=== PATIENT | male | born 1950 | race Caucasian/White ===

== ENCOUNTER → 2018-12-21 17:58 | Outpatient (CLI) | payer OTHER, MEDICARE, SELFPAY ==
--- NOTE | 2018-12-21 18:04 | DI.RAD.S_ITS ---
PROCEDURE: XR CHEST 2V INDICATIONS: worsening cough 1 month TECHNIQUE: 2 views of the chest were acquired. COMPARISON: None. FINDINGS: Surgical changes and devices: None. Lungs and pleura: No pleural effusions or pneumothorax. Lungs are clear. Mediastinum: Mediastinal contours are normal. Heart size is normal. Bones and chest wall: No suspicious bony abnormalities. Soft tissues appear unremarkable. IMPRESSION: No acute cardiopulmonary disease. Dictated by: Brando Muñiz M.D. on 12/21/2018 at 20:50 Approved by: Brando Muñiz M.D. on 12/21/2018 at 20:50
[2018-12-21 18:36] LABS: D Dimer < 200 ng/mL (<230)
== END ==
PROVIDERS: Visit Provider Physician Assistant
DX: R05 Cough (principal)
CPT/HCPCS: 71046; 85379

== ENCOUNTER 2019-04-21 08:36 | Emergency (ER) | payer OTHER, MEDICARE, SELFPAY ==
[2019-04-21 08:53] VITALS: BP 149/70; PULSE 60; RESP 14; TEMP 36.2; O2SAT 100; BMI 25.3
--- NOTE | 2019-04-21 10:59 | ED.SKABFB ---
HPI - Skin/Abscess/Foreign Bdy General Chief complaint: Skin/Abscess/Foreign Body Stated complaint: RASH Time Seen by Provider: 04/21/19 09:23 Source: patient Mode of arrival: ambulatory Limitations: no limitations History of Present Illness HPI narrative: Patient complains of a rash on her hands and forearms and feet and lower legs for the last 5 days. Patient states she has now noticed that it has spread to her back. Patient has been on Benadryl and cetirizine, which have not seemed to have had any effect. The patient denies any swelling in her throat or face. She states the rash has been mildly itchy. She states she is not taken any steroids, because she has had a bad reaction to them in the past. Patient states that today, she has began to notice that she has mucus drainage in her eyes and in her nose, and down the back of her throat. No other complaints this time. Patient denies nausea vomiting, shortness breath, or chest pain. Patient states she saw her primary care physician about this a few days back, and was felt to have had a food allergy. Patient denies any sick contacts. 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 Related Data Previous Rx's Medication Instructions Recorded benzonatate 100 mg capsule 100 mg PO TID PRN #20 cap 12/21/18 hydroxyzine HCl 25 mg PO QID PRN #20 tab 04/21/19 Allergies Allergy/AdvReac Type Severity Reaction Status Date / Time Penicillins Allergy Verified 04/21/19 08:53 prednisone Allergy Verified 04/21/19 08:53 Sulfa (Sulfonamide Allergy Verified 04/21/19 08:53 Antibiotics) Review of Systems Constitutional Denies chills, Denies fever(s), Denies lethargy and Denies weakness Eyes Denies change in vision, Denies eye discharge, Denies irritation and Denies loss of vision ENT Ears, Nose, Mouth, and Throat: Denies change in voice, Denies neck pain and Denies sore throat Cardiovascular Denies chest pain, Denies irregular heart rhythm, Denies lightheadedness, Denies palpitations, Denies dyspnea, Denies dyspnea on exertion and Denies orthopnea Respiratory Denies cough, Denies dyspnea, Denies dyspnea on exertion and Denies wheezing Gastrointestinal Gastrointestinal: Denies abdominal pain, Denies change in bowel habits, Denies diarrhea, Denies nausea and Denies vomiting Genitourinary Denies hematuria, Denies flank pain, Denies urinary incontinence and Denies urinary urgency Musculoskeletal Denies neck pain Integumentary/Breasts Denies pruritus, Denies erythema, Reports rash and Denies wounds Neurologic Denies confusion, Denies loss of vision and Denies weakness Psychiatric Denies anxiety, Denies confusion, Denies depression, Denies homicidal ideation and Denies suicidal ideation Endocrine Denies palpitations Hematologic/Lymphatic Denies easy bruising Allergic/Immunologic Denies wheezing [facility] Medical History Healthy adult (Acute) Social History Smoking Status: Never smoker Social History Smoking Status: Never smoker Exam Initial Vital Signs Initial Vital Signs: Vital Signs Temperature 97.1 F L 04/21/19 08:53 Pulse Rate 60 04/21/19 08:53 Respiratory Rate 14 04/21/19 08:53 Blood Pressure 149/70 H 04/21/19 08:53 Pulse Oximetry 100 04/21/19 08:53 Const General: cooperative and well developed Nutritional Appearance: well nourished Orientation: alert, awake, oriented x3 and not confused [facility] Head: normocephalic and atraumatic Ears: external ears normal and TM's normal bilaterally Nose: external nose normal and No nasal discharge Face and sinus: sinuses nontender, face symmetric, no sinus tenderness and No dry mucous membranes Mouth: oral mucosae normal and moist mucous membranes Teeth and gingiva: dentition normal Throat: tonsils normal and uvula midline Eyes General: appearance normal, both eyes and all related structures Eyelids: eyelids normal Conjunctivae: conjunctivae normal Sclera: sclerae normal Pupils: PERRL EOM: EOM intact bilaterally Neck Neck: normal visual inspection, trachea midline, No lymphadenopathy, No midline deformity and No JVD Lymphatic: No lymphedema Chest Chest: normal inspection of the chest Resp Effort & Inspection: normal respiratory effort, able to speak in complete sentences, no respiratory distress and no use of accessory muscles Auscultation: clear to auscultation bilaterally, no rales, no rhonchi and no wheezes Cardio Rate: regular rate Rhythm: regular rhythm Heart Sounds: no click, no gallops, no murmurs and no rubs Pulses: normal peripheral pulses GI Inspection: non-distended Palpation: soft, no hepatosplenomegaly, No guarding, No pulsatile mass and No tender Auscultation: normal bowel sounds Back/Spine/Pelvis Back: No CVA tenderness Cervical Spine: cervical ROM normal and No pain with cervical ROM Thoracic/Lumbar Spine: thoracic and lumbar spine normal to inspection Skin General: No jaundice and No petechiae Other: Patient has a fine, maculopapular rash involving both sides of her hands and forearms, and both feet and lower legs. She has the same rash to lesser degree over her back. No urticaria are noted. No pustules or vesicles. No open wounds. Neuro General: alert, oriented x3, gait normal and no focal motor deficits Speech: speech normal Extrem General: full ROM, no clubbing, cyanosis or edema, no pedal edema and no calf tenderness Psych Appearance: well kempt Mental Status: mental status grossly normal Attitude: cooperative Thought Content: normal and suicidality Judgment: judgment good Course Course Narrative: I discussed with the patient that I am not entirely certain what is causing her rash. The patient does have nasal congestion and mucus production, as well as runny eyes, and as such, she may have an upper respiratory infection with viral exanthem, or she may have an allergic reaction. At this time, it is not entirely clear what she would be reacting to, and the patient has declined steroids, which would most likely be the most helpful in managing her symptoms. At this point, I advised the patient that she does not have any evidence of an emergent cause of rash, and that most likely, the symptoms will blow over on their own. We have discussed home management of the symptoms, as well as the usual indications for return. Vital Signs - 8 hr 04/21/19 11:11 Pulse Rate 57 L Respiratory Rate 18 Blood Pressure 160/69 H Pulse Oximetry 98 MDM - Skin/Abscess/Foreign Bdy Medical Records Attestation: I reviewed the patient's medical records. Discharge Plan Departure Patient Disposition: Home Clinical Impression: Rash Discharge Date/Time: 04/21/19 11:11 Interventions: ED Discharge Assessment Last Done: 04/21/19 11:11 Instructions: DI for Viral Upper Respiratory Infection -- Adult, DI for Rash Activity Restrictions/Additional Instructions: There is no evidence of a dangerous cause of your rash at this time. This may be related to allergy or viral infection, but either way, it would be expected to blow over on its own. Prednisone would be the most helpful medication for this, most likely, but since you have had a bad reaction to steroids in the past, we will hold off on this. Prescriptions: New hydroxyzine HCl 25 mg tablet 25 mg PO QID PRN (Reason: rash) Qty: 20 RF: 0 No Action benzonatate [Tessalon Perles] 100 mg capsule 100 mg PO TID PRN (Reason: cough) Qty: 20 RF: 0 Referrals: Emanuel Ambrocio ARNP [Primary Care Provider] -
[2019-04-21 11:11] VITALS: BP 160/69; PULSE 57; RESP 18; O2SAT 98
== END 2019-04-21 11:11 | disposition home or self-care (01) ==
PROVIDERS: Emergency Provider Emergency Medicine; PCP Registered Nurse
DX: R21 Rash and other nonspecific skin eruption (principal)
CPT/HCPCS: 99282; 99283

== ENCOUNTER → 2020-06-13 09:33 | Outpatient (CLI) | payer OTHER, MEDICARE, SELFPAY ==
--- NOTE | 2020-06-13 09:35 | DI.MRI.S_ITS ---
PROCEDURE: MR CERVICAL SPINE WO CON INDICATIONS: Strain of muscle, fascia and tendon at neck and low back TECHNIQUE: Noncontrast sagittal T1 spin echo and T2 fast spin echo, sagittal STIR, foraminal oblique sagittal T2 fast spin echo, and axial gradient echo or T2 fast spin echo through the cervical spine. COMPARISON: None. FINDINGS: Image quality: Excellent. Alignment and Curvature: There is loss of normal cervical lordosis. There is mild kyphosis at C3-C5. Bone Marrow: Marrow demonstrates normal overall signal. There is mild reactive signal within the endplates adjacent to the C3-C4, C4-C5, C5-C6, and C6-C7 intervertebral discs. Spinal Cord: Visualized spinal cord has normal size and signal. No cerebellar tonsillar herniation. Paraspinous Soft Tissues: No paravertebral masses. Prevertebral soft tissues are normal in thickness. C2-C3: Mild disc desiccation. Mild bilateral facet hypertrophy. No significant canal stenosis. Mild bilateral foraminal stenosis. C3-C4: Mild disc height loss. Moderate disc desiccation. Mild diffuse disc bulge with superimposed small central protrusion. Moderate left and mild right facet and uncovertebral hypertrophy. Severe left and moderate right foraminal stenosis. Left C4 nerve root compression. C4-C5: Moderate disc height loss and desiccation. Mild diffuse disc bulge with superimposed right paracentral protrusion. Moderate facet and uncovertebral hypertrophy, right greater than left. Severe canal stenosis. Mild right cord flattening. Severe right and mild left foraminal stenosis. Right C5 nerve root compression. C5-C6: Moderate disc height loss and desiccation. Mild diffuse disc bulge. Moderate facet and uncovertebral hypertrophy, right greater than left. Moderate canal stenosis. Moderate right and mild left foraminal stenosis. C6-C7: Moderate disc height loss and desiccation. Mild diffuse disc bulge. Mild facet and uncovertebral hypertrophy bilaterally. Mild canal stenosis. Moderate left greater than right foraminal stenosis. C7-T1: Mild disc height loss and desiccation. Mild diffuse disc bulge. Mild facet and uncovertebral hypertrophy bilaterally. Mild canal stenosis. Mild left greater than right foraminal stenosis. IMPRESSION: 1. Multilevel degenerative disc and facet disease, as well as uncovertebral hypertrophy. 2. Multilevel canal stenosis, worst at C4-C5, where there is severe canal stenosis and mild cord flattening. 3. Multilevel foraminal stenoses, worst at C3-C4 and C4-C5, where there is associated intraforaminal nerve root compression. Recommend correlation with clinical symptoms to ascertain relevance of this finding. Dictated by: David Simental M.D. on 06/15/2020 at 9:28 Approved by: David Simental M.D. on 06/15/2020 at 9:36
--- NOTE | 2020-06-13 09:35 | DI.MRI.S_ITS ---
PROCEDURE: MR LUMBAR SPINE WO CON INDICATIONS: Strain of muscle, fascia and tendon at neck and low back TECHNIQUE: Noncontrast sagittal T1 spin echo and T2 fast echo, sagittal STIR, axial T1 and T2 fast spin echo through the lumbar spine. In cases with scoliosis, additional coronal T2 fast spin echo may be performed. COMPARISON: None. FINDINGS: Image quality: Excellent. Alignment and Curvature: There is normal bony alignment. Bone Marrow: Marrow is of normal overall signal. No acute vertebral body compression fractures. Spinal Cord: Conus medullaris terminates at the T12 level. Visualized cord demonstrates normal signal and size. Paraspinous Soft Tissues: No paravertebral masses. A low-density cystic lesion is present within the lower pole of the right kidney which is incompletely characterized. L1-L2: Normal appearance. L2-L3: Normal appearance. L3-L4: Mild disc bulge. No canal stenosis. No neural foraminal narrowing. L4-L5: Mild disc desiccation and height loss. Broad-based disc bulge. Mild facet ligamentum flavum hypertrophy. No canal stenosis. No neural foraminal narrowing. Small posterior focal high-intensity zone. L5-S1: Severe disc desiccation and height loss. Vacuum disc phenomenon. Broad-based disc bulge. Moderate-sized posterior focal high-intensity zone. No canal stenosis. No neural foraminal narrowing. IMPRESSION: 1. Disc desiccation and height loss at L4-5 and L5-S1. Findings are severe at L5-S1 with vacuum disc phenomenon present. 2. Posterior annular tears at L4-5 and L5-S1. 3. No canal stenosis or neural foraminal narrowing. Less common manifestations of disc degeneration: * dorsal epidural disc herniation. * intradural disc herniation (may have beaklike morphology). * symptomatic thoracic herniation: often, calcified, intradural. * far lateral disc herniation. * discal cyst: may have blood-fluid level. * fibrocartilaginous embolism of disc material to spinal cord. * calcified disc or bony spicule causing spinal CSF leak. Lumbar disc nomenclature v2.0: Recommendations of the combined task forces of the [place] [employer], [place] [employer], and [place] [employer] Annular fissures: seen as high intensity zones on MRI. Concentric, radial, transverse. Degeneration encompasses: desiccation, fibrosis, disc narrowing, diffuse bulge, fissuring, mucinous degeneration of annulus, intradiscal gas, vertebral apophyseal osteophytes, end plate defects, inflammatory changes and sclerosis (Modic types I-III). Disc herniation: localized or focal displacement of disc material less than 25% (90 degrees) of disc periphery on axial images. Diffuse bulging and asymmetric bulging (>25%) are not considered herniation. * Protrusion, extrusion, sequestration. * Disc fragment can migrate (refers only to position, not contiguity). * Intravertebral herniations (aka Schmorl nodes). * Herniations may be contained (if covered by intact outer annulus and/or PLL) vs uncontained. Subligamentous is considered synonymous with contained. A sequestered and/or migrated disc fragment can still be contained. Canal and foraminal stenosis: use 2-D measurements at site of most marked compromise. * Mild: canal compromise of less than 1/3. * Moderate: canal compromise of 1/3 to 2/3. * Severe: canal compromise of greater than 2/3. Location descriptors: * Central, right/left central, right/left subarticular, right/left foraminal, right/left extraforaminal or far lateral. Right/left central should supersede paracentral (a more general term). * In sagittal plane: discal, infrapedicular, suprapedicular, or pedicular. Dictated by: Xiomara Aguilar M.D. on 06/15/2020 at 9:29 Approved by: Xiomara Aguilar M.D. on 06/15/2020 at 9:32
== END ==
PROVIDERS: PCP Registered Nurse; Referring Provider Orthopaedic Surgery; Visit Provider Orthopaedic Surgery
DX: S16.1XXA Strain of muscle, fascia and tendon at neck level, initial encounter (principal); S39.012A Strain of muscle, fascia and tendon of lower back, initial encounter; M51.36 Other intervertebral disc degeneration, lumbar region; M50.31 Other cervical disc degeneration, high cervical region; M48.02 Spinal stenosis, cervical region; M47.812 Spondylosis without myelopathy or radiculopathy, cervical region; X58.XXXA Exposure to other specified factors, initial encounter
CPT/HCPCS: 72141; 72148

== ENCOUNTER → 2020-12-29 15:35 | Outpatient (CLI) | payer OTHER, MEDICARE, SELFPAY ==
--- NOTE | 2020-12-29 | DI.MRI.S_ITS ---
PROCEDURE: MR HIP RT WO CON INDICATIONS: Unilateral primary osteoarthritis, right hip TECHNIQUE: Noncontrast coronal T1 spin echo and STIR through the bony pelvis. Coronal and axial T2 fast spin echo with fat saturation, sagittal T1 spin echo, and oblique axial T2 fast spin echo with fat saturation through the hip. COMPARISON: None. FINDINGS: Image quality: Excellent. Bones and joints: Moderate right hip joint periarticular osteophyte formation. Mild subchondral degenerative marrow edema within the right superior femoral head as well as the right superior acetabulum. No intraosseous lesions or fractures. No avascular necrosis of the femoral heads. The visualized lower lumbar spine appears normally aligned. Tendons and ligaments: The gluteus medius and minimus tendons appear intact, without associated muscle atrophy. The nearby proximal iliotibial band also appears intact. The iliopsoas tendon appears intact, without adjacent bursal fluid collections or evidence for impingement syndrome. The origin of the hamstring tendon is intact at the ischial tuberosity, as well as the associated sacrotuberous ligament. The straight and reflected heads of the rectus femoris muscle origin appear intact, as well as the conjoint tendon. The ligamentum teres appears intact where visualized. Labrum and cartilage: Diffuse linear and amorphous high T2 signal intensity within the anterosuperior and superolateral right hip labrum, indicating labral tearing. Cartilage surface of the femoral head appears of normal thickness. The alpha angle of the femur is within normal limits at less than 55 degrees. Soft tissues: Visualized muscles demonstrate normal bulk and internal signal. Quadratus femoris muscle demonstrates no internal edema to suggest ischiofemoral impingement. The proximal sciatic neurovascular bundle appears normal adjacent to the hamstring tendons. No free pelvic fluid. Bladder wall thickness is normal. Genitourinary structures and bowel loops appear normal where visualized. IMPRESSION: 1. Right hip osteoarthritis associated with degenerative tearing of the right hip labrum. 2. No fracture. Dictated by: David Simental M.D. on 12/29/2020 at 16:35 Approved by: David Simental M.D. on 12/29/2020 at 16:38
== END ==
PROVIDERS: PCP Registered Nurse; Referring Provider Orthopaedic Surgery; Visit Provider Orthopaedic Surgery
DX: M16.11 Unilateral primary osteoarthritis, right hip (principal); S73.191A Other sprain of right hip, initial encounter
CPT/HCPCS: 73721

== ENCOUNTER → 2021-01-26 15:11 | Outpatient (CLI) | payer OTHER, MEDICARE, SELFPAY ==
[2021-01-26 15:28] LABS: Bacteria Urine None Seen; RBC Urine None Seen (0-5/HPF); WBC Urine None Seen (0-5/HPF)
[2021-01-26 17:36] LABS: Add Manual Diff / Slide Review NO; Basophils Absolute Auto 0 /uL (0-100); Basophils Percent Auto 0.7 % (0-2); Eosinophils Absolute Auto 200 /uL (0-450); Eosinophils Percent Auto 2.5 % (2-4); Hemoglobin 12.9 g/dL (13.5-17.5); Lymphocytes Absolute Auto 1300 /uL (1100-4500); Lymphocytes Percent Auto 19.4 % (25-40); Mean Corpuscular HGB Conc 33.8 % (30-36); Mean Corpuscular Hemoglobin 28.6 PG (26-34); Mean Corpuscular Volume 84.5 fL (80-100); Monocytes Absolute Auto 500 /uL (0-900); Monocytes Percent Auto 7.9 % (3-14); Neutrophils Absolute Auto 4600 /uL (1500-7000); Neutrophils Percent Auto 69.5 % (50-75); Platelet Count 288 X10^3/uL (150-400); Red Cell Distribution Width 14.5 % (11.6-14.8); White Blood Cell Count 6.6 X10^3/uL (4.5-11.0)
[2021-01-26 17:42] LABS: INR 0.9 (0.9-1.3); Prothrombin Time 10.5 SECONDS (10.1-12.7)
[2021-01-26 17:45] LABS: PTT Partial Thromboplastin Tim 30 SECONDS (26.4-36.2)
[2021-01-26 17:52] LABS: Appearance Urine UA CLEAR; Bilirubin Urine UA NEGATIVE (NEGATIVE); Color Urine UA YELLOW; Glucose Urine UA NEGATIVE (Negative); Ketones Urine UA NEGATIVE (NEGATIVE); Leukocyte Esterase Urine UA NEGATIVE (NEGATIVE); Nitrite Urine UA NEGATIVE (Negative); Occult Blood Urine UA NEGATIVE (Negative); Protein Urine UA NEGATIVE (Negative); Urobilinogen Urine UA 0.2 E.U./dL (0.2); pH Urine UA 5.5 (4.5-8.0)
[2021-01-26 18:01] LABS: Culture Indicated Urine Cult Not Indicated; Urine Comments Microscopic Normal
[2021-01-26 18:07] LABS: Hemoglobin A1C% w Est Avg Glu 6.5 % (4.0-6.0)
[2021-01-26 18:11] LABS: BUN Creatinine Ratio 28.8 (6-22); Blood Urea Nitrogen 19 mg/dL (9-20); Calcium 9.5 mg/dL (8.4-10.2); Carbon Dioxide 28 mmol/L (22-32); Chloride 105 mmol/L (98-107); Estimated Glomerular Filt Rate > 60.0 mL/min (>60); Glucose 127 mg/dL (80-110); HEMOLYSIS < 15 (0-50); Sodium 140 mmol/L (137-145)
== END ==
PROVIDERS: PCP Registered Nurse; Referring Provider Orthopaedic Surgery; Visit Provider Orthopaedic Surgery
DX: Z01.812 Encounter for preprocedural laboratory examination (principal); R73.9 Hyperglycemia, unspecified; N39.0 Urinary tract infection, site not specified; Z51.81 Encounter for therapeutic drug level monitoring
CPT/HCPCS: 36415; 80048; 81001; 83036; 85025; 85610; 85730

== ENCOUNTER → 2021-02-17 10:59 | Outpatient (CLI) | payer OTHER, MEDICARE, SELFPAY ==
[2021-02-17 13:43] LABS: COVID19 -Nasal RAPID Negative (Negative)
== END ==
PROVIDERS: PCP Registered Nurse; Visit Provider Student in an Organized Health Care Education/Training Program
DX: Z20.822 Contact with and (suspected) exposure to COVID-19 (principal)
CPT/HCPCS: 87635

== ENCOUNTER 2021-02-18 08:57 | Day surgery (SDC) | payer OTHER, MEDICARE, SELFPAY ==
[2021-02-18] VITALS (16 sets, daily range): BP systolic 138–188; BP diastolic 61–94; PULSE 60–79; RESP 8–20; TEMP 36.2–37.1; O2SAT 92–99; BMI 30.9
--- NOTE | 2021-02-18 06:00 | DI.RAD.S_ITS ---
PROCEDURE: XR HIP W PEL IF DONE RT 2V INDICATIONS: Right DANIEL, anterior TECHNIQUE: AP pelvis and lateral view of the right hip acquired. COMPARISON: None. FINDINGS: Bones: Patient is status post right hip arthroplasty, with hardware components in expected positions. The hip joint appears congruent. The visualized bony structures appear intact. Soft tissues: Overlying postoperative changes are noted. No suspicious soft tissue densities. IMPRESSION: Expected postoperative alignment. Dictated by: Collin Mendez M.D. on 02/18/2021 at 16:01 Approved by: Collin Mendez M.D. on 02/18/2021 at 16:02
[2021-02-18] MEDS: ACETAMINOPHEN 325 MG TABLET 975 MG PO (09:48)
[2021-02-18] MEDS: LACTATED RINGERS 1,000 ML 42 ML IV ×2 (10:10→13:50)
[2021-02-18] MEDS: VANCOMYCIN 1,000 MG/200 ML PIGGYBACK 200 MG IV (10:25)
--- NOTE | 2021-02-18 10:53 | PM.PREOP ---
Pre-operative Note COVID-19 COVID-19 status: Negative Interval Note History & Physical reviewed/Exam performed by Physician: Yes Changes to H&P: No
--- NOTE | 2021-02-18 10:53 | PM.OP.1 ---
Operative Date/Time/Diagnoses Date of procedure: 02/18/21 Time of procedure: 10:53 Pre-op diagnosis: right hip OA Post-op diagnosis: same Procedure & Clinicians Procedure: right total hip arthroplasty anterior approach Same procedure as scheduled: Yes Indications: The patient has had progressively worsening right hip pain with radiographic changes consistent with arthritis. Non-operative management has failed and the patient has requested total hip replacement. The risks, benefits and alternatives to surgery were discussed with the patient prior to proceeding. Risks discussed included, but were not limited to, failure to relieve pain, leg length discrepancy, dislocation, stiffness, infection, nerve damage, deep venous thrombosis, pulmonary embolism, stroke, coma, heart attack, permanent paralysis and , as well as the potential need for eventual revision of the prosthetic. Surgeon: Heather Royal Legal Examiner: Kalen Mott Anesthesia Type: General and Spinal Operative Notes Findings: severe right hip osteoarthritis, adequate bone, adequate stability Closure Type: primary Specimen(s): none sent Prosthetic devices, grafts, tissues, transplants, or devices: [employer] standard anthology size 6, +0 x 32 Oxinium head, size 50 R3 cup, 1 screw Estimated Blood Loss (mL): 250 Blood products transfused: none Procedure in detail: The patient was brought to the operating room. Patient was carefully positioned in the supine position. Time-out was performed and antibiotics were given. Anesthesia was induced. She was positioned in the on the table in order to allow hyperextension of the hip. The Right lower extremity was prepped and draped in a standard sterile fashion. An anterior right hip incision was made 1 fingerbreadth lateral to the anterior superior iliac spine and extended distally towards the greater trochanter. Dissection was carried out through skin and subcutaneous tissues. Superficial hemostasis was achieved. The fascia over the tensor fascia kassie was defined and incised with a knife. Two Allis clamps were used to grasp the fascia. Tensor fascia kassie was retracted laterally. A gelpi retractor was placed. Dissection was carried out down along the neck. The circumflex vessels were carefully identified and cauterized with the Aqua Mantis. There was good visualization of the femoral neck. A Cobra was placed superior to the neck and the gluteus fibers were carefully stripped from that superior aspect of the capsule. A 2nd retractor was placed along the inferior aspect of the neck. The rectus insertion along the capsule was partially released. A 3rd retractor that was then gently placed over the rim of the acetabulum under the rectus. Capsule was carefully incised and released from the intertrochanteric line circumferentially superior to the mid sagittal line and inferiorly to the mid sagittal line until the lesser trochanter was palpable. A tag stitch was placed both in the superior and inferior limb of the capsular insertion. Along the acetabulum capsule was also released up to the mid sagittal 12:00 position. A portion of the labrum was resected. A saw was used to perform an osteotomy at the level of the intertrochanteric line and the junction of the superior femoral neck leaving approximately 1 finger breath of residual inferior neck above the lesser trochanter. A 2nd cut was made along the femoral neck at the base of the head and a napkin ring of neck was removed. Corkscrew was placed in the femoral head and the head was removed without difficulty. Retractors were then repositioned around the acetabulum. Residual labrum was resected and additional osteophytes were removed. A reamer that was 4 mm below the templated size was placed by hand in the acetabulum and it was reamed to centralize the acetabulum. It was then reamed up to 2 under the templated size and fluoroscopy was brought in to confirm the position of the reaming and depth of reaming. I reamed 1 under the anticipated size. A trial cup was placed and noted that it was appropriately sized and fluoroscopy confirmed position and depth. The component was open and inserted without difficulty fluoroscopic imaging was used to confirm that the cup had been adequately seated and was well positioned. it was further stabilized with a single screw. Neutral poly liner was placed. The cup was tested and noted to be stable. Attention was then directed to the femur. The femur was gently hyperextended additional capsular release was performed as needed in order to allow adequate visualization of the proximal femur with elevation of the femur. Patient was placed in a hyperextended slightly adducted position with maximum external rotation. Box osteotome was used to check for any residual neck as well as sclerotic bone along the trochanter. Cosmos pepper was placed in the femur. Additional broaching was performed. Canal finder was used to determine the alignment of the canal and position. Size 1 broach was placed. The canal was then appropriately broached up to the templated size as long as there was adequate stability of the broach and serial advancement of the broach without excessive impingement. Specific attention was directed at avoiding varus attempting to direct the distal aspect of the broach more anteriorly and avoiding excessive anteversion. Trial reduction showed acceptable range of motion, good stability, no posterior impingement, confucianism of leg length and appropriate lateral shuck. I also hyperflexed the hip and checked that there was no impingement anteriorly and there was good stability with flexion, adduction and internal rotation. Marcaine and Exparel were injected. The stem was placed without difficulty. Repeat trial reduction and x-ray showed acceptable overall position, length, and no evidence of the femoral fracture. Final head was placed. Wound was meticulously irrigated with normal saline. The hip was reduced and additional Exparel and Marcaine were injected. The capsule was closed with interrupted nonabsorbable sutures. The fascia of the tensor was closed with interrupted and running Vicryl. No drain was placed. Any tensor fascia kassie muscle that appeared to be contused or injured which was a minimal amount was carefully resected. Capsule around the tensor was injected with Exparel and Marcaine. The skin was closed with barbed stitches for the subcutaneous tissue and skin. We also used surgical glue. The wound was dressed sterilely. Brief Betadine soak was also used and was meticulously irrigated with normal saline. Patient was transferred to recovery room in satisfactory condition. Complications: none Post-operative Condition: stable Disposition: Acute Care Plan for aftercare: The patient will be maintained on a standard total hip replacement protocol with weight bearing as tolerated and anterior hip precautions. The patient will receive Aspirin and sequential compression devices for DVT prophylaxis. The patient will be discharged home when safe for the home environment.
[2021-02-18] MEDS: CEFAZOLIN 2 GM/100 ML FROZ.PIGGY IV ×2 (11:40→21:31)
[2021-02-18] MEDS: TRANEXAMIC ACID 1,000 MG VIAL 2000 MG INJ ×2 (12:00→14:00)
--- NOTE | 2021-02-18 12:16 | SUR.OPER ---
Supine on padded Norden table with bilateral legs secured in padded positioning boots and suspended in positioning spars, operative leg in traction per surgeon. Head on one pillow. Arm on non-operative side secured on padded armboard <90 degrees abduction. Arm on operative side padded and resting across chest then secured with tape over sheet. Padded perineal post in place per surgeon.
--- NOTE | 2021-02-18 12:17 | SUR.OPER ---
pt. presents to the OR with an approximately 3 inch long inguinal skin tear on the right side. Surgeon aware
[2021-02-18] MEDS: BUPIVACAINE LIPOSOME 266 MG/20 ML VIAL INJ (12:28)
[2021-02-18] MEDS: SODIUM CHLORIDE IRRIG SOLUTION 250 ML, POVIDONE-IODINE SPONGE STICKS 1 APPLIC IRR (12:29)
[2021-02-18] MEDS: BUPIVACAINE 0.25% W/ EPI (PF) 10 ML VIAL 20 ML INJ (12:30)
[2021-02-18] MEDS: BACITRACIN 28 GM OINT 1 APPLIC TOP (13:07)
[2021-02-18] MEDS: fentaNYL 100 MCG/2 ML INJ IV (14:40)
[2021-02-18] MEDS: HYDROMORPHONE 2 MG INJ IV (14:59)
[2021-02-18] MEDS: OXYCODONE IR 5 MG TABLET PO (15:16)
[2021-02-18] MEDS: ONDANSETRON 4 MG/2 ML INJ IV (15:29)
[2021-02-18] MEDS: LACTATED RINGERS 1,000 ML 125 ML IV (16:50)
[2021-02-18] MEDS: IBUPROFEN 400 MG TABLET PO ×2 (18:10→21:31)
[2021-02-18] MEDS: ACETAMINOPHEN 325 MG TABLET 650 MG PO ×2 (18:10→21:30)
[2021-02-18] MEDS: CYCLOSPORINE 1 EACH EYE-BOTH (21:28)
[2021-02-18] MEDS: DOCUSATE 100 MG CAPSULE PO (21:30)
[2021-02-18] MEDS: ASPIRIN EC 81 MG TABLET PO (21:31)
[2021-02-19 00:33] VITALS: BP 127/61; PULSE 69; RESP 16; TEMP 36.3; O2SAT 99
[2021-02-19] MEDS: IBUPROFEN 400 MG TABLET PO ×3 (00:51→08:40)
[2021-02-19] MEDS: LACTATED RINGERS 1,000 ML 125 ML IV (00:52)
[2021-02-19] MEDS: CEFAZOLIN 2 GM/100 ML FROZ.PIGGY IV (04:05)
--- NOTE | 2021-02-19 04:38 | PC.NURSE ---
0055: patient is alert and oriented. Breath sounds CTA with RA sat of 99%. HRR. Denies nausea. BT hypoactive but patient states she is passing flatus. Voiding on BSC; denies dysuria, frequency or urgency. Is able to move self in bed. Assisted to BSC with 1 assist and using walker. Having some numbness in right upper leg and is only able to lift leg slightly off bed otherwise CMS is intact. Refusing to wear SCD's so reminded to ankle wave when aake. States pain is minimal at 3/10 so medicated with scheduled Ibuprofen and ice applied to hip; declines offer of other pain medication. Aquacel dressing to right anterior hip is CDI. Fall risk score is moderate and bed alarm is activated.
[2021-02-19 05:17] VITALS: BP 119/53; PULSE 72; RESP 16; TEMP 35.9; O2SAT 97
[2021-02-19 05:38] LABS: Hemoglobin 10.7 g/dL (13.5-17.5)
[2021-02-19] MEDS: PANTOPRAZOLE 40 MG TABLET PO (06:37)
[2021-02-19] MEDS: LEVOTHYROXINE 75 MCG TABLET 150 MCG PO (06:37)
[2021-02-19 07:45] VITALS: BP 140/65; PULSE 65; RESP 15; TEMP 36.6; O2SAT 98
[2021-02-19] MEDS: DOCUSATE 100 MG CAPSULE PO (08:38)
[2021-02-19] MEDS: MONTELUKAST 10 MG TABLET PO (08:38)
[2021-02-19] MEDS: MULTIVITAMIN 1 TABLET 1 TAB PO (08:38)
[2021-02-19] MEDS: METOPROLOL ER 25 MG TABLET PO (08:38)
[2021-02-19] MEDS: ASPIRIN EC 81 MG TABLET PO (08:38)
[2021-02-19] MEDS: ACETAMINOPHEN 325 MG TABLET 650 MG PO (08:39)
--- NOTE | 2021-02-19 08:53 | PM.PNPO.1 ---
Subjective Subjective Date Patient Seen: 02/19/21 Time Patient Seen: 08:19 Interval history: Patient states she is doing well after the right DANIEL. She notes that her pain is a 2/10 at the moment and is well controlled with Ibuprofen. The patient denies any difficulty voiding and states that she is able to ambulate well with the assistance of a walker. She reports that she has yet to meet with physical therapy. Patient has her prescriptions at home and states that she will continue taking Aspirin 81mg for another six weeks. Physical therapy is scheduled in the future at [facility]. Exam Vital Signs (past 8 hours): - 02/19/21 05:17 02/19/21 07:45 Temperature 96.7 F L 98 F Pulse Rate 72 65 Respiratory Rate 16 15 Blood Pressure 119/53 L 140/65 Pulse Oximetry 97 98 Oxygen Delivery Method Room Air Oxygen Flow Rate 0 Narrative Exam Narrative: Patient is pleasant and sitting upright in chair in the room having breakfast. Surgical incision site is clean without erythema and there is no strike through on the bandage. Vital signs are stable. Patient has normal sensation throughout the RLE. Plantar flexion and dorsiflexion of the ankle is performed without discomfort. Negative Homans sign. Patient is able to flex the right hip against slight resistance. Const General: cooperative and comfortable Orientation: alert, awake and oriented x3 HENMT Head: normal to inspection Resp Effort & Inspection: normal respiratory effort and able to speak in complete sentences Extrem General: normal to inspection, capillary refill normal and no calf tenderness Right lower extremity: normal capillary refill and hip/thigh Details: normal to inspection and normal ROM Objective Labs Result Diagrams: 02/19/21 05:19 Labs: Laboratory Results - last 24 hr 02/19/21 05:19 Hgb 10.7 L Hct 31.0 L [facility] Medical History Arthritis Congestive heart failure Crohn's disease Degenerative joint disease Headache, migraine Healthy adult Inflammatory bowel disease Obesity Sleep apnea Thyroid disease Social History household members: spouse and children Smoking Status: Never smoker alcohol intake: current Assessment & Plan Post-op Postoperative Procedures: Procedures Operation Date: 02/18/21 10:45 Actual Procedures Side Surgeon p Total Hip Arthroplasty/Anterior Approach Right Heather Royal MD Postoperative day: 1 Postoperative status: doing well Postoperative status narrative: Patient is stable Postoperative plan: ambulate Postoperative plan narrative: Patient is doing well but has yet to work with PT. She has a ramp and nine total stairs in her home. Prior to discharge the patient needs to ambulate with PT while also working on ascending stairs and ramps. The patient is to continue Aspirin 81mg for DVT prophylaxis, Tylenol and Ibuprofen for pain management, and weight bearing as tolerated with the assistance of a walker. She will follow up in two weeks for her first post-op visit and is currently scheduled for PT at [facility]. Physical therapy is needed prior to the patient being discharged. Anterior hip precautions. Quality VTE Deep Vein Thrombosis/Pulmonary Embolism Present on Admission: No
--- NOTE | 2021-02-19 09:53 | PT.IIE ---
Current Diagnoses Unilateral primary osteoarthritis, right hip (02/18/21) Surgery Performed Operation Date: 02/18/21 10:45 Actual Procedures p Total Hip Arthroplasty/Anterior Approach(Right) - Heather Royal MD Medical History (Last Reviewed 02/19/21 @ 09:14 by Tristen Hernandez PA-C) Arthritis Congestive heart failure Crohn's disease Degenerative joint disease Headache, migraine Healthy adult Inflammatory bowel disease Obesity Sleep apnea Thyroid disease Physical Therapy Inpatient Evaluation/Re-Eval M1 PT/OT-IP Prior Functional Status Start: 02/19/21 10:57 Freq: NEEDED Status: Active Protocol: Document 02/19/21 09:53 AB (Rec: 02/19/21 11:15 AB [id number]) Medical Review Prior Functional Status Medical History Reviewed Yes Communication able to make needs known Social History Household Members spouse,children Living Arrangements House Number of Floors (Floors) One Floor Number of Stairs To Enter/Railing? ramp to enter from the back 9 steps with bilateral wide rails from the front: can only hold on to one rail at a time Home Environment High Toilet,Tub/Shower Home Equipment Front Wheel Walker,Four Wheel Walker,Straight Cane,Raised Toilet Seat Without Armrests, Shower Seat with Backrest,Hand Held Shower,Grab Bars In Shower Additional Social History Comment has an adjustable bed with L side rail M2 PT-IP Current Condition Start: 02/19/21 10:57 Freq: NEEDED Status: Active Protocol: Document 02/19/21 09:53 AB (Rec: 02/19/21 11:15 AB [email or web address]) Physical Therapy Current Condition Current Condition Evaluation Date 02/19/21 Treatment Diagnosis s/p R DANIEL anterior approach; difficulty in walking Onset Date 02/18/21 Precautions Anterior Hip Precautions No Hip Extension,No Hip External Rotation Weight Bearing Status Weight Bearing Status Weight Bear as Tolerated Allowed Weight Bearing Amount (enter % RLE WBAT or #) (%) M3 PT-IP Subjective Start: 02/19/21 10:57 Freq: NEEDED Status: Active Protocol: Document 02/19/21 09:53 AB (Rec: 02/19/21 11:15 AB [email or web address]) Subjective Physical Therapy Visit Type Type Initial Evaluation Visit Start Time 09:53 Visit Stop Time 10:00 Total Visit Minutes 57 Number of LICENSED PSYCHOLOGIST MANAGER Visits 0 Physical Therapy Visit Comments Patient Comments pt is agreeable to do PT Therapy Pain Assessment Pain When Pain Assessed At Rest Pain Present Pain Present Pain Reported Location right hip Intensity 2 Scale Used increases to 3/10 with mobility Pain Management Techniques Distraction,Modification of Treatment,Re-positioning, Timing of Activity with Medications M4 PT-IP Mobility and Gait Start: 02/19/21 10:57 Freq: NEEDED Status: Active Protocol: Document 02/19/21 09:53 AB (Rec: 02/19/21 11:15 AB [email or web address]) PT-Bed Mobility Assessment Supine to Sit Supine to Sit Standby Assistance Sit to Supine Sit to Supine Standby Assistance PT-Transfer Assessment Sit to and From Stand Sit to and from Stand Standby Assistance Equipment Transfer Assistive Device Gait Belt Orthotic/Prosthetic Devices or Brace: No Transfers Transfer Destination Bed,Chair Transfer Technique ambulated using FWW Transfer Ability Level of Assist Standby Assistance,1 Person Assistance,Use of Upper Extremities Comments Mobility Comments educated pt on R anterior hip precautions. pt initially requires cues to recall but able to remember towards end of tx session. pt sitting on chair and completed sit to stand SBA and cues for techniques. ambulated towards the bed using FWW SBA and cues to maintain hip precautions. completed sit<> supine SBA and cues for techniques. pt completed sit to stand from EOB but pulled on FWW to get up and was unsteady and needing to use back of LE against the bed to brace herself up. educated pt on techniques and safety. completed sit <>stand from EOB x 5 reps and was able to complete SBA and without cues towards the end of repetition. pt ambulated in the hallway ~ 125 ft using FWW SBA. completed up/down steps holding on to R rail with B hands CGA. pt ambulated back to the her room using FWW SBA. positioned on chair. call light and table placed within reach. offered caregiver training but stated that she has a daughter that has down's syndrome and spouse cannot leave her by herself and will not be able to do caregiver training. Gait Assessment Gait Gait Assistance Required: Standby Assistance Distance (Feet) 125 Able to Maintain Weight Bearing Status Yes During Gait Assistive Devices Assistive Device Gait Belt,Front Wheeled Walker Orthotic/Prosthetic Devices or Brace: No Gait Deviations General Gait Pattern Antalgic Factors Limiting Gait Function Factors Limiting Gait Function Decreased Activity Tolerance, Decreased Strength,Limited Range of Motion,Pain,Poor Balance,Poor Safety Awareness Stair Climbing Assessment Evaluation Level of Assist On Stairs Contact Guard Assistance Devices Stair Climbing Assistive Devices Right Railing Technique/Endurance Stair Climbing Direction Ascend and Descend Stair Climbing Technique Step to Step Number of Steps Climbed 3 Query Text: Stair Climbing Set # Repetitions (reps) 1 Comments Stair Climbing Comments pls refer to mobility section for details PT-Balance Assessment Sitting Balance and Reactions Static Sitting Balance Ability Good Dynamic Sitting Balance Ability Good Standing Balance and Reactions Static Standing Balance Ability Fair Dynamic Standing Balance Ability Fair Device Used FWW M5 PT-IP Objective Assessments Start: 02/19/21 10:57 Freq: NEEDED Status: Active Protocol: Document 02/19/21 09:53 AB (Rec: 02/19/21 11:15 [email or web address]) Orientation Orientation/Cognition Level of Alertness Alert Orientation Name Safety Awareness Decreased Safety Awareness Memory Description Short Term Impaired Comments with slight confusion Gross Range of Motion Lower Extremity ROM Assessment Within Functional Limits Strength Lower Extremity Strength Assessment Right Impaired Hip 3-/5 Knee 4-/5 Coordination Assessment Gross Coordination Gross Coordination WNL Sensation Assessment Sensation Sensation Description Numbness Comments Sensation Comments stated that R hip area is still numb Muscle Tone Muscle Tone WNL Yes M6 PT-IP Treatment Start: 02/19/21 10:57 Freq: NEEDED Status: Active Protocol: Document 02/19/21 09:53 AB (Rec: 02/19/21 11:15 [email or web address]) Physical Therapy Treatment Education Education Provided Precautions,Weight Bearing Status,Post-Op Packet,Safety M7 PT-IP Assessment and Plan Start: 02/19/21 10:57 Freq: NEEDED Status: Active Protocol: Document 02/19/21 09:53 AB (Rec: 02/19/21 11:15 [email or web address]) PT Summary Assessment and Plan Potential Rehabilitation Potential Good Status of Condition at Evaluation Stable Summary Impairments Pain,ROM,Strength,Balance, Coordination,Sensation, Cognition,Bed Mobility, Transfers,Gait,Activity Tolerance Assessment Summary pt requiring SBA with mobility using FWW. requires CGA with stair climbing but pt plans to use the ramp to get into the house. pt has her spouse to assist her and is set up for outpt PT. pt may go home when medically stable. Goals Bed Mobility Goal Independent Transfer Goal Independent,Front Wheeled Walker Gait Goal Independent,Front Wheel Walker Gait Distance 200 Other Goals up/down 9 steps R rail SBA Days to Meet Goals 3 Frequency of Treatment Frequency Of Treatment Twice a Day Treatment Plan Physical Therapy Treatment Plan Bed Mobility Training,Transfer Training,Gait Training, Therapeutic Exercise,Balance Retraining,Post Op Education, Discharge Planning,Hot or Cold Pack,Neuromuscular Re-ed, Coordination Retraining,Manual Therapy Precautions Anterior Hip Precautions No Hip Extension,No Hip External Rotation Recommendations To Nursing Amount of Assist Needed Standby Assistance Discharge Recommendations PT Discharge Recommendations Home with Assistance, Outpatient PT Transportation Needs at Discharge Private Vehicle
--- NOTE | 2021-02-19 10:16 | PC.NURSE ---
Patient has an aquacel dressing to her anterior hip is cdi. Patient taking ibuprofen and tylenol for pain and helpful. Working with PT now. Will most likely discharge home today.
[2021-02-19] MEDS: BOSWELLIA 450 EACH PO (11:19)
[2021-02-19 12:03] VITALS: BP 132/67; PULSE 65; RESP 16; TEMP 36.5; O2SAT 100
--- NOTE | 2021-02-19 12:18 | CM.IDA ---
Initial DCP Assessment Note Pt is a 70 yo female, resident of [place], now POD#1 from right hip surgery w/ Dr Royal PCP: Emanuel Ambrocio Payer: [place]/ [employer]ANE[employer] Reviewed chart, pt discussed in multidisciplinary rounds this morning. Therapy has cleared pt for return home w/family to assist and pt has planned for home. PT Shannen has expressed some concern about DCP; patient and spouse care for their dtr who has down's syndrome, spouse will need to address both dtr's and patient's needs at home. No one available today for cg training. In addition, patient showing signs of short term memory loss. Patient still being cleared for return home upon DC and patient would like to attend outpatient PT which has already been scheduled. No needs expected from DC planning team although will remain available in case this changes before DC. GUIDO Ochoa
--- NOTE | 2021-02-19 13:29 | PM.DS.1 ---
History of Present Illness History of Present Illness Date Patient Seen: 02/19/21 Time Patient Seen: 13:30 Chief complaint: *OPB* Narrative: See previous HPI Discharge Providers Provider Discharge Date: 02/19/21 Primary care physician: Emanuel Ambrocio ND Consults: 02/18/21 06:00 Consult to Anesthesiology Routine Comment: Consulting Provider: Anesthesiologist Reason for consultation: Regional block for post operative pain control 02/18/21 16:14 Consult to Discharge Planning Routine Comment: Consult to Physical Therapy Evaluate & Treat Comment: Physician Instructions: post op DANIEL protocol Consult to Respiratory Therapy Evaluate & Treat Comment: Physician Instructions: Evaluate and treat Discharge provider: Tristen Hernandez PA-C Summary Hospital Course Discharge Diagnosis: Right hip osteoarthritis S/P right total hip arthroplasty Hospital Course: Patient presented to hospital for surgery regarding above diagnoses. Patient tolerated procedure well and has done well in recovery. She was admitted to the hospital overnight after the procedure and has had her pain well controlled since the operation. Patient has worked with PT prior to being evaluated prior to discharge without complication. Patient will undergo PT at [facility] with a follow up appointment in [facility] set for two weeks from the date of surgery (02/18/21). Status at Discharge Cognitive/behavioral status at discharge: oriented Functional status at discharge: uses cane/walker Exam Vital Signs (past 8 hours): - 02/19/21 07:45 02/19/21 12:03 Temperature 98 F 97.7 F Pulse Rate 65 65 Respiratory Rate 15 16 Blood Pressure 140/65 132/67 Pulse Oximetry 98 100 Oxygen Delivery Method Room Air Oxygen Flow Rate 0 Narrative Exam Narrative: Patient is pleasant and resting comfortably in the chair in her room. Surgical incision site is clear of erythema or drainage, no strike through of the bandage noted. Sensation intact, capillary refill < 2 seconds on the right LE, NVI. Patient is able to perform plantar flexion, dorsiflexion, inversion, and eversion of the ankles bilaterally. Negative Homans sign. Const General: cooperative and comfortable Resp Effort & Inspection: normal respiratory effort and able to speak in complete sentences Extrem General: capillary refill normal and normal exam except as noted Objective Labs Result Diagrams: 02/19/21 05:19 Labs: Laboratory Results - last 24 hr 02/19/21 05:19 Hgb 10.7 L Hct 31.0 L PFSH Medical History Arthritis Congestive heart failure Crohn's disease Degenerative joint disease Headache, migraine Healthy adult Inflammatory bowel disease Obesity Sleep apnea Thyroid disease Social History household members: spouse and children Smoking Status: Never smoker alcohol intake: current Discharge Assessment & Plan Assessment and Plan Assessment: Patient has performed well after surgery on 02/18/21. Pain is well controlled, patient is ambulating well with walker at partial weight bearing, and denies nausea, shortness of breath, or chest pain. VSS. Patient to undergo PT at [facility] and will follow up in clinic at [facility] in two weeks from date of surgery. Discharge Plan Discharge Plan Patient Disposition: Home Discharge orders & Medications Discharge Orders: Discharge (Order); Ordered 02/19/21 Ordered By: Tristen Hernandez Prescriptions: New acetaminophen 325 mg Tablet 650 mg PO TID PRN (Reason: pain (scale score 4-6)) Qty: 60 RF: 0 oxycodone 5 mg Tablet 10 mg PO Q3H PRN (Reason: pain) Qty: 60 RF: 0 aspirin 81 mg Tablet,Delayed Release (Dr/Ec) 81 mg PO BID Qty: 90 RF: 0 docusate sodium [DOK] 100 mg Capsule 100 mg PO BID PRN (Reason: constipation) Qty: 30 RF: 0 ibuprofen 400 mg Tablet 400 mg PO Q4HR PRN (Reason: Pain, Moderate) Qty: 60 RF: 0 Continued omeprazole 40 mg capsule,delayed release(DR/EC) 40 mg PO BID RF: 0 levothyroxine 75 mcg tablet 150 mcg PO DAILY RF: 0 potassium 99 mg Tablet 99 mg PO DAILY RF: 0 montelukast 10 mg tablet 10 mg PO DAILY RF: 0 metoprolol succinate [Toprol XL] 25 mg Tablet Extended Release 24 Hr 25 mg PO DAILY RF: 0 Restasis 0.05 % dropperette 1 drp ophthalmic (eye) Q12H RF: 0 red yeast rice 600 mg Tablet 600 mg PO DAILY RF: 0 K-Fnwknl-B-Cysteine RF: 0 multivitamin [Daily Vitamin Formula] Tablet 1 tab PO DAILY RF: 0 epinephrine [EpiPen] 0.3 mg/0.3 mL Auto-Injector 0.3 mg IM PRN PRN (Reason: Anaphylaxis) RF: 0 levocarnitine tartrate 500 mg Capsule 500 mg PO DAILY RF: 0 mywoe-[id number]-xol-vck-aczgxeu-ast [krill oil] [id number],548-896-44-80 mg Capsule 1 cap PO DAILY RF: 0 acetaminophen [Acetaminophen Extra Strength] 500 mg Tablet 500 - 1,000 mg PO Q6H PRN (Reason: Pain) RF: 0 magnesium citrate 100 mg Capsule 100 mg PO DAILY RF: 0 meloxicam [Mobic] 15 mg Tablet 15 mg PO DAILY RF: 0 diphenhydramine HCl [Benadryl] 25 mg Capsule 50 mg PO BEDTIME PRN (Reason: Rash) RF: 0 Discontinued oxycodone 5 mg tablet 5 - 10 mg PO Q3H PRN (Reason: pain) RF: 0 aspirin 81 mg Capsule,Delayed Release(Dr/Ec) 81 mg PO DAILY RF: 0 Follow up/Referrals: Emanuel Ambrocio ARNP [Primary Care Provider] - Heather Royal MD [Physician] - (Follow up in two weeks) Diet/Activity/Treatments Diet: Diet as Tolerated Activity: weight bearing as tolerated on right hip with posterior dislocation precautions Cold/Heat Therapy: ice 20 minutes per hour as tolerated Skin/Wound/Dressing Care Report to your healthcare provider any signs of infection, such as:: chills, fever, night sweats, increased pain, unusual drainage and unusual redness Dressing: Keep clean, dry, and intact Visit Report/Discharge Packet Instructions: DI for Hip Replacement Stand Alone Forms: Surgery Discharge Discharge Data Primary Care Provider: Emanuel Ambrocio Attending Provider: Heather Royal Quality VTE Deep Vein Thrombosis/Pulmonary Embolism Present on Admission: No
== END 2021-02-19 13:50 | disposition home or self-care (01) ==
LOC: OR 09:03 → AC 09:03
PROVIDERS: PCP Registered Nurse; Referring Provider Orthopaedic Surgery; Visit Provider Orthopaedic Surgery
PROC: (CPT 27130; principal; 2021-02-18 10:45)
DX: M16.11 Unilateral primary osteoarthritis, right hip (principal); G47.33 Obstructive sleep apnea (adult) (pediatric); K21.9 Gastro-esophageal reflux disease without esophagitis; I50.9 Heart failure, unspecified
CPT/HCPCS: 27130; 36415; 73502; 76000; 85014; 85018; 97116; 97161; 97530; C1776; C9290; J0690; J1170; J2250; J2405; J2704; J3010

== ENCOUNTER → 2024-01-18 11:49 | Outpatient (CLI) | payer OTHER, MEDICARE, SELFPAY ==
[2021-02-18 09:05] VITALS: BMI 30.9
--- NOTE | 2024-01-18 | DI.MRI.S_ITS ---
PROCEDURE: MR KNEE LT WO CON INDICATIONS: Pain in left knee TECHNIQUE: Noncontrast sagittal PD fast spin echo and T2 fast spin echo with fat saturation, sagittal 3-D FLASH with fat saturation; coronal T1 spin echo and PD fast spin echo with fat saturation, and axial PD fast spin echo with fat saturation through the knee. COMPARISON: [facility], CR, XR KNEE 4+ VIEWS LEFT, 04/26/2023, 8:34. [facility] [place], CR, XR KNEE 4+ VIEWS LEFT, 09/08/2022, 15:50. [facility] [place], CR, XR KNEE ARTHRITIC SERIES BI, 12/01/2023, 11:23. FINDINGS: Image quality: Excellent. Menisci: There is medial meniscal extrusion and degenerative tear involving the anterior horn body of the medial meniscus. There is intrasubstance degeneration the posterior horn of the medial meniscus. The lateral meniscus demonstrates normal morphology and internal signal. The meniscal root ligaments appear intact. Cruciate ligaments: The anterior and posterior cruciate ligaments appear intact. Medial structures: The medial collateral ligament appears intact. The semimembranosus tendon insertions and meniscocapsular junction appear intact. Visualized portions of the pes anserinus tendons appear normal. No abnormal bursal fluid. Lateral structures: The lateral collateral ligament, long and short heads of the biceps femoris tendon appear intact. The popliteus tendon appears normal. Iliotibial band appears normal. Anterior structures: The quadriceps and patellar tendons appear intact. There is partial tear or contusion of the medial patellar retinaculum. Patellar alignment is normal. No femoral trochlear dysplasia or ventral trochlear prominence. No edema in the infrapatellar fat pad. Bones and cartilage: No bone marrow contusions or fractures. There is cartilage fibrillation with cartilage thinning, most pronounced in the medial femorotibial compartment. Joint space: There is small knee joint fluid. No Quispe's cyst. Normal appearing synovial plicae are incidentally noted. There are a clustered cyst in the anterior intercondylar notch. Differential diagnoses are parameniscal cysts or ganglion cysts. IMPRESSION: 1. Medial meniscal extrusion and degenerative tear of the anterior horn and body of the medial meniscus. 2. Partial tear or contusion of the medial patellar retinaculum. 3. A clustered cyst in the anterior intercondylar notch. Differential diagnoses are parameniscal cysts or ganglion cysts. 4. Tricompartmental cartilage fibrillation with cartilage thinning, most pronounced in the medial femorotibial compartment. Dictated by: Brando Muñiz M.D. on 01/18/2024 at 17:02 Approved by: Brando Muñiz M.D. on 01/19/2024 at 9:30
== END ==
PROVIDERS: Family Provider Registered Nurse; PCP Registered Nurse; Referring Provider Orthopaedic Surgery; Visit Provider Orthopaedic Surgery
DX: M23.212 Derangement of anterior horn of medial meniscus due to old tear or injury, left knee (principal); M25.562 Pain in left knee; S80.02XA Contusion of left knee, initial encounter
CPT/HCPCS: 73721

== ENCOUNTER 2024-07-25 06:05 | Day surgery (SDC) | payer OTHER, MEDICARE, SELFPAY ==
[2021-02-18 09:05] VITALS: BMI 30.9
[2024-07-23 13:12] VITALS: BMI 31.3
[2024-07-25] VITALS (11 sets, daily range): BP systolic 126–186; BP diastolic 61–105; PULSE 63–74; RESP 12–16; TEMP 36.2–36.7; O2SAT 96–100; BMI 31.3
--- NOTE | 2024-07-25 04:41 | DI.RAD.S_ITS ---
PROCEDURE: XR KNEE LT 1TO2V INDICATIONS: post op knee left TECHNIQUE: 2 view(s) of the knee acquired. COMPARISON: None. FINDINGS: Bones: Patient is status post knee joint medial hemiarthroplasty.. Hardware components are in expected positions. Visualized bony structures are intact. Soft tissues: Overlying postoperative changes are noted. IMPRESSION: Expected post operative change for left knee hemiarthroplasty. Dictated by: Sera Valladares MD, PhD on 07/25/2024 at 10:45 Approved by: Sera Valladares MD, PhD on 07/25/2024 at 10:45
[2024-07-25] MEDS: VANCOMYCIN 1,000 MG/200 ML PIGGYBACK 200 MG IV (07:07)
[2024-07-25] MEDS: CELECOXIB 200 MG CAPSULE 400 MG PO (07:07)
[2024-07-25] MEDS: ACETAMINOPHEN 325 MG TABLET 975 MG PO (07:08)
[2024-07-25] MEDS: LACTATED RINGERS 1,000 ML 84 ML IV ×2 (07:24→10:00)
--- NOTE | 2024-07-25 07:44 | PM.PREOP ---
Pre-operative Note Interval Note History & Physical reviewed/Exam performed by Physician: Yes Changes to H&P: No
--- NOTE | 2024-07-25 07:45 | P.OP_ITS ---
Operative Date/Time/Diagnoses Date of procedure: 07/25/24 Time of procedure: 08:00 Pre-op diagnosis: Left knee medial compartment OA Post-op diagnosis: same Procedure & Clinicians Procedure: Left knee medial unicompartment arthroplasty Same procedure as scheduled: Yes Indications: The patient has had progressively worsening left knee pain with radiographic changes consistent with arthritis. Non-operative management has failed and the patient has requested left medial Uni knee replacement. The risks, benefits and alternatives to surgery were discussed with the patient prior to proceeding. Risks discussed included, but were not limited to, failure to relieve pain, stiffness, infection, nerve damage, deep venous thrombosis, pulmonary embolism, stroke, coma, heart attack, permanent paralysis and , as well as the potential need for eventual revision of the prosthetic. Surgeon: Heather Royal Mechanical Engineering Draftsperson: Russ Marrero Anesthesia Type: Spinal and Peripheral nerve block Operative Notes Findings: Severe left knee medial unicompartment arthritis, good stability, adequate bone Closure Type: primary Specimen(s): none sent Prosthetic devices, grafts, tissues, transplants, or devices: Royal and nephew elsa unicompartment medial unicompartment femur, tibia Estimated Blood Loss (mL): 250 Blood products transfused: none Procedure in detail: The patient was seen in the pre-operative area, where the left knee was identified as the operative site and this was marked with my initials. The patient received pre-operative antibiotics, and was taken to the operating room and placed on the operative table in the supine position. After satisfactory anesthesia, a time stamp assembler out was performed. The left leg was encircled with a tourniquet about the proximal thigh, and the leg was prepared from the toes to the tourniquet with ChloroPrep in the usual fashion and draped through sterile drapes. The leg was elevated and exsanguinated with Eschmark bandage and the tourniquet inflated to [250] mmHg pressure. A PA was used during the procedure and was essential for intraoperative retraction and safe implantation of the components. The knee was approached through an approximately 10 cm incision medial parapatella incision and carried into the knee through a medial parapatellar arthrotomy. The osteophytes and medial meniscus were removed. Pins were placed in the femur and the tibia for robotic assisted navigation. The [employer] robotic assisted navigation was used to map the distal femur and the tibia. Patient was placed through a range of motion and we looked at stressed and unstressed curves optimizing fit and stability and alignment. The femur and the tibia were meticulously mapped. The robotic assisted bur was used to resect the femoral bone and tibial bone. The tibia was sized. Drill holes were made in the tibia. Trial reduction with the appropriate poly showed full range of motion and good stability at 0, 45. and 90? with normal tracking of the components without edge loading. The bone was meticulously irrigated and dried. Additional Marcaine was injected. The posterior capsule was injected with 0.25% Marcaine mixed with 266 mg Exparel for post-operative pain control. The remainder of this mixture was injected into the capsule and subcutaneous tissues during cement curing. Range of motion was [0-130], with good stability throughout the range. The trials were then remove. The cement was as applied and the final prosthetics placed. Excess cement was removed during and after cement curing. A brief medial compartment Betadine soak was performed. After confirming there was no extruded cement posteriorly, the final tibial insert was placed. The knee was copiously irrigated and the tourniquet deflated. Hemostasis was obtained. The capsule was closed with interrupted vicryl. The subcutaneous tissue was closed with barbed sutures. The skin with a running 3-0 V-Lock suture and surgical glue. An Aquacel Ag dressing was applied and the patient was taken to recovery having tolerated the procedure well. Complications: none Post-operative Condition: stable Disposition: Acute Care Plan for aftercare: The patient will be maintained on a standard medial uni knee replacement protocol with weight bearing as tolerated. The patient will receive baby aspirin and sequential compression devices for DVT prophylaxis. The patient will be discharged home when safe for the home environment.
[2024-07-25] MEDS: CLINDAMYCIN 900 MG/50 ML PIGGYBACK 50 MG IV (08:30)
--- NOTE | 2024-07-25 08:41 | SUR.OPER ---
Supine on padded OR bed. Pillow under head, arms secured on padded armboards <90 degree abduction. Safety belt across torso. Non-operative leg secured with tape over blanket over lower leg. Operative leg secured in DeMayo positioner. Foam padded brace at thigh of operative leg.
[2024-07-25] MEDS: BUPIVACAINE 0.25% (PF) 60 ML, EPINEPHrine 0.3 MG INJ ×2 (08:48→08:53)
[2024-07-25] MEDS: BUPIVACAINE LIPOSOME 266 MG/20 ML VIAL INJ ×2 (08:48→08:53)
[2024-07-25] MEDS: TRANEXAMIC ACID 1,000 MG VIAL 1000 MG INJ (10:12)
[2024-07-25] MEDS: TRAMADOL 50 MG TABLET PO (10:46)
[2024-07-25] MEDS: ONDANSETRON 4 MG/2 ML INJ IV (10:47)
--- NOTE | 2024-07-25 11:53 | SUR.PHASEII ---
Physical therapy called at 11:10 to notify of need for PT evaluation prior to discharge home.
--- NOTE | 2024-07-25 11:56 | SUR.PHASEII ---
Assisted patient to standing with walker; patient can feel the bottoms of both weight and can bear weight but still feels like she might lose her balance. Patient doing well. VSS. Patient tolerating PO without difficulty. Physical therapy at lunch. This nurse will call PT for evaluation when patient ready to ambulate.
--- NOTE | 2024-07-25 12:41 | PT.IIE ---
Current Diagnoses Unilateral primary osteoarthritis, left knee (07/25/24) Surgery Performed Operation Date: 07/25/24 07:45 Actual Procedures p Unicompartment Knee Arthroplasty - Robot(Left) - Heather Royal MD Surgical History (Last Updated 07/23/24 @ 13:31 by Mayra Issa, RN) H/O heart artery stent H/O: hysterectomy Hx of CABG (02/11/24) Hx of tonsillectomy Medical History (Last Updated 07/23/24 @ 13:31 by Mayra Issa, RN) Arthritis Asthma CAD (coronary artery disease) Congestive heart failure Crohn's disease Degenerative joint disease Diabetes GERD (gastroesophageal reflux disease) Headache, migraine Healthy adult HLD (hyperlipidemia) IBS (irritable bowel syndrome) Inflammatory bowel disease Obesity Sleep apnea Statin intolerance Stenosis of left subclavian artery Thyroid disease Physical Therapy Inpatient Evaluation/Re-Eval M1 PT/OT-IP Prior Functional Status Start: 07/25/24 11:52 Freq: NEEDED Status: Active Protocol: Document 07/25/24 12:10 MB (Rec: 07/25/24 12:41 MB [id number]) Medical Review Prior Functional Status Medical History Reviewed Yes Diet/Fluid Consistency Regular Communication WNLs Mobility and Gait I Activities of Daily Living and IADL's I Social History Household Members spouse,children Living Arrangements House Number of Floors (Floors) One Floor Number of Stairs To Enter/Railing? Ramp to enter Home Environment Standard Height Toilet Home Equipment Four Wheel Walker,Raised Toilet Seat w/Armrests Employment Status Retired Additional Social History Comment Pt and state they have no shower or tub at this time d/t home renovations and pt will have to go to [facility] M2 PT-IP Current Condition Start: 07/25/24 11:52 Freq: NEEDED Status: Active Protocol: Document 07/25/24 12:10 MB (Rec: 07/25/24 12:41 MB [id number]) Physical Therapy Current Condition Current Condition Evaluation Date 07/25/24 Treatment Diagnosis Left unicompartmental knee M3 PT-IP Subjective Start: 07/25/24 11:52 Freq: NEEDED Status: Active Protocol: Document 07/25/24 12:10 MB (Rec: 07/25/24 12:41 MB [id number]) Subjective Physical Therapy Visit Type Type Initial Evaluation Visit Start Time 12:10 Visit Stop Time 12:27 Number of CUTTING ROOM SUPERVISOR Visits 0 Physical Therapy Visit Comments Patient Comments Pt is agreeable to PT, has lower pain, feels golf ball under foot, and daughter arrive during assessment. Therapy Pain Assessment Pain When Pain Assessed At Rest Pain Present Pain Present Pain Reported Location left knee Intensity 3 Scale Used Numeric (0 - 10) M4 PT-IP Mobility and Gait Start: 07/25/24 11:52 Freq: NEEDED Status: Active Protocol: Document 07/25/24 12:10 MB (Rec: 07/25/24 12:41 MB [id number]) PT-Bed Mobility Assessment Rolling Type of Rolling Roll to Right,Roll to Left Level of Assist Independent Supine to Sit Supine to Sit Independent Sit to Supine Sit to Supine Independent Scooting Scooting to Edge of Bed Independent Scooting Up and Down in Bed Independent PT-Transfer Assessment Sit to and From Stand Sit to and from Stand Standby Assistance,1 Person Assistance,Use of Upper Extremities Equipment Transfer Assistive Device Gait Belt,4 Wheeled Walker Orthotic/Prosthetic Devices or Brace: No Transfers Transfer Destination Bed Transfer Technique Ambulation Transfer Ability Level of Assist Standby Assistance,1 Person Assistance,Use of Upper Extremities Comments Mobility Comments Pt is not familiar with 4WRW that brings in and PT teaches her pushing up from the bed, use of locks of rollator. Cues to push up from the bed and not the walker Gait Assessment Gait Gait Assistance Required: Standby Assistance Distance (Feet) 40 Able to Maintain Weight Bearing Status Yes During Gait Assistive Devices Assistive Device Gait Belt,4 Wheeled Walker Orthotic/Prosthetic Devices or Brace: No Gait Deviations General Gait Pattern Antalgic,Decreased Stride Length,Decreased Feet Clearance,Flexed Trunk,Step-to Gait,Wide Based Gait Factors Limiting Gait Function Factors Limiting Gait Function Decreased Activity Tolerance, Decreased Sensation,Decreased Strength,Difficulty Following Directions,Incoordination, Limited Range of Motion,Pain, Poor Balance,Poor Safety Awareness Comments Gait Comments Pt states she feels like there is a golf ball under her left foot and she has mild foot drop currently with stepping, decreased toe off and foot clearance, step-to gait PT-Balance Assessment Sitting Balance and Reactions Static Sitting Balance Ability Good Dynamic Sitting Balance Ability Good Standing Balance and Reactions Static Standing Balance Ability Fair Dynamic Standing Balance Ability Fair Device Used Rollator M5 PT-IP Objective Assessments Start: 07/25/24 11:52 Freq: NEEDED Status: Active Protocol: Document 07/25/24 12:10 MB (Rec: 07/25/24 12:41 MB [id number]) Orientation Orientation/Cognition Level of Alertness Alert Orientation Name,Birthday,Situation Language Function Ability No Deficits Noted Safety Awareness Decreased Safety Awareness Memory Description No Deficits Noted Gross Range of Motion Upper Extremity ROM Assessment Within Functional Limits Lower Extremity ROM Assessment Left Impaired Impairments Functionally observed 0-75 deg in supine and sitting EOB today, pt does have quad engagement Strength Comments Strength Comments MMT deferred post-op and right LE is functional, functional foot drop/decreased toe off and heel strike on left foot currently Coordination Assessment Gross Coordination Gross Coordination Impaired Sensation Assessment Comments Sensation Comments Decreased left foot and feels there is a golf ball under foot M6 PT-IP Treatment Start: 07/25/24 11:52 Freq: NEEDED Status: Active Protocol: Document 07/25/24 12:10 MB (Rec: 07/25/24 12:41 MB [id number]) Physical Therapy Treatment Exercises Exercises Ankle Pumps,Heel Slides Education Education Provided Weight Bearing Status,Safety Other Treatments Other Treatment Performed Ed pt in APs, SAQs and HS M7 PT-IP Assessment and Plan Start: 07/25/24 11:52 Freq: NEEDED Status: Active Protocol: Document 07/25/24 12:10 MB (Rec: 07/25/24 12:41 MB [id number]) PT Summary Assessment and Plan Potential Rehabilitation Potential Good Status of Condition at Evaluation Evolving Summary Impairments Pain,ROM,Strength,Balance, Coordination,Sensation,Bed Mobility,Transfers,Gait, Activity Tolerance Progress Towards Goals Progressing Toward Goals Assessment Summary Pt is a lady presenting with I bed mobility and SBA for transfers and gait with her 4WRW that she is not accustomed to. and daughter are nearby for assessment. She has OPPT set- up for 08/02. She currently has some sensory changes immediately post-op and decreased left foot clearance with gait/mild foot drop and feelings of golf ball under foot. She has a ramp to enter home and no bath tub or shower currently and will have to go to club house if she showers. She will d/c home with family. Frequency of Treatment Frequency Of Treatment Discharge Weight Bearing Status Weight Bearing Status Weight Bear as Tolerated Recommendations To Nursing Amount of Assist Needed 1 Person Assist Discharge Recommendations PT Discharge Recommendations Home with Assistance, Outpatient PT Transportation Needs at Discharge Private Vehicle
[2024-07-25] MEDS: OXYCODONE IR 5 MG TABLET PO (13:20)
== END 2024-07-25 14:37 | disposition home or self-care (01) ==
LOC: OR 06:08 → AC 06:10
PROVIDERS: Family Provider Registered Nurse; PCP Registered Nurse; Referring Provider Orthopaedic Surgery; Visit Provider Orthopaedic Surgery
PROC: (CPT 27446; principal; 2024-07-25 07:45)
DX: M17.12 Unilateral primary osteoarthritis, left knee (principal); G89.18 Other acute postprocedural pain
CPT/HCPCS: 27446; 64450; 73560; 97161; C1776; C1713; C9290; J0171; J2250; J2405; J2704; J3010

== ENCOUNTER → 2024-08-05 10:29 | Outpatient (CLI) | payer OTHER, MEDICARE, SELFPAY ==
[2021-02-18 09:05] VITALS: BMI 30.9
--- NOTE | 2024-08-05 11:30 | DI.MRI.S_ITS ---
PROCEDURE: MR ANKLE LT WO CON INDICATIONS: LEFT ANKLE GANGLION CYST TECHNIQUE: Noncontrast sagittal T1 spin echo and T2 fast spin echo with fat saturation, axial proton density fast spin echo and T2 fast spin echo with fat saturation, coronal T1 spin echo and T2 fast spin echo with fat saturation through the ankle/hindfoot. COMPARISON: None. FINDINGS: Image quality: Excellent. Bones and joints: [id number] midfoot and hindfoot joint osteoarthritic changes are seen with joint space narrowing, subchondral sclerosis and small marginal osteophyte formation. Well-defined plantar and dorsal calcaneal enthesophytes are seen. No fracture or dislocation. No osteochondral injuries of talar dome. No significant joint effusion or intra-articular loose bodies. No suspicious intraosseous lesions. Mild diffuse soft tissue swelling and edema in distal lower leg extending to midfoot and forefoot is seen. No discrete soft tissue mass or drainable fluid collection. Medial structures: The posterior tibialis, flexor digitorum longus, and flexor hallucis longus tendons are intact. The posterior tibial neurovascular bundle appears normal within the tarsal tunnel, without extrinsic mass effect. The deltoid ligament and spring ligament are mildly thickened. Lateral structures: The anterior talofibular, calcaneofibular, and posterior talofibular ligaments appear thickened with intrasubstance T2 hyperintense signal. More superiorly, the anterior and posterior tibiofibular ligaments appear intact, as is the intermalleolar ligament. The tibiofibular syndesmosis is normal in width at 2 mm or less. The peroneus longus and brevis tendons are thickened at the level of lateral malleolus tip extending to the level of calcaneocuboid joint and cuboid. The sinus tarsi demonstrates normal fatty signal, without edema, fibrosis, or cyst formation. Visualized sinus tarsi components (cervical ligament, interosseous talocalcaneal ligament, roots of the inferior extensor retinaculum) appear normal. Anterior structures: The tibialis anterior and extensor hallucis longus tendons are mildly thickened along anterior aspect of distal tibia and tibiotalar joint. The extensor digitorum longus tendon appears intact. The dorsal talonavicular ligament appears intact. Posterior and plantar structures: Achilles tendon is intact. Medial and lateral bands of the plantar fascia are of normal thickness. No abductor digiti quinti muscle atrophy to suggest Yusuf neuropathy. IMPRESSION: 1. Diffuse soft tissue swelling and edema in distal lower leg extending to midfoot and forefoot. No discrete drainable fluid collection. No soft tissue mass. No ganglion cyst is seen. 2. [id number] midfoot and hindfoot joint osteoarthritis. No fracture or dislocation. No suspicious bony lesions. 3. 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 Mild tendinosis involving tibialis anterior tendon and extensor hallucis longus tendon as above. No ankle tendon rupture. 4. Low-grade medial ankle ligament sprain. Moderate grade sprain/partial-thickness tear involving anterior and posterior talofibular ligaments and calcaneofibular ligament. No full-thickness ankle ligament rupture. Dictated by: Arturo Velazquez M.D. on 08/05/2024 at 16:09 Approved by: Arturo Velazquez M.D. on 08/05/2024 at 16:18
== END ==
LOC: MRI 10:31
PROVIDERS: Family Provider Registered Nurse; PCP Registered Nurse; Referring Provider Podiatrist; Visit Provider Podiatrist
DX: S93.412A Sprain of calcaneofibular ligament of left ankle, initial encounter (principal); S93.492A Sprain of other ligament of left ankle, initial encounter; M19.072 Primary osteoarthritis, left ankle and foot; M67.472 Ganglion, left ankle and foot; M79.89 Other specified soft tissue disorders; R60.0 Localized edema
CPT/HCPCS: 73721

== ENCOUNTER → 2024-08-08 11:23 | Outpatient (CLI) | payer OTHER, MEDICARE, SELFPAY ==
[2021-02-18 09:05] VITALS: BMI 30.9
[2024-08-08 13:05] LABS: Alanine Aminotransferase 14 IU/L (<35); Albumin 4.1 g/dL (3.5-5.0); Albumin Globulin Ratio 1.2 (1.0-2.8); Alkaline Phosphatase 113 U/L (38-126); Aspartate Aminotransferase 20 IU/L (14-36); Bilirubin Total 0.3 mg/dL (0.2-1.3); Bilirubin Unconjugated 0.2 mg/dL (0.0-1.1); Globulin 3.4 g/dL (1.7-4.1); HEMOLYSIS < 15 (0-50); Total Protein 7.5 g/dL (6.3-8.2)
== END ==
LOC: LAB 11:25
PROVIDERS: Family Provider Registered Nurse; PCP Registered Nurse; Referring Provider Podiatrist; Visit Provider Podiatrist
DX: B35.3 Tinea pedis (principal)
CPT/HCPCS: 36415; 80076

== ENCOUNTER → 2025-06-18 14:36 | Outpatient (CLI) | payer OTHER, MEDICARE, SELFPAY ==
[2021-02-18 09:05] VITALS: BMI 30.9
--- NOTE | 2025-06-18 14:39 | DI.US.S_ITS ---
PROCEDURE: US VENOUS INSUFFICIENCY LTD INDICATIONS: VENOUS DISTENTION TECHNIQUE: Real time scanning was performed of the lower extremity venous system, with imaging documentation, as well as Color and pulse Doppler interrogation. COMPARISON: None. FINDINGS: LEFT LOWER EXTREMITY: The deep veins are normally compressible, and free of intraluminal thrombus. Color and pulse Doppler demonstrate normal intravascular flow. There is normal augmentation with distal compression maneuver. Greater saphenous vein (GSV): Normally 4 mm or less in diameter, with any reflux less than 0.5 seconds. Saphenofemoral junction (SFJ): 6 mm. No reflux. Proximal GSV: 5 mm. Reflux 5.5 seconds Mid GSV: 4 mm. Reflux 5.6 seconds Distal GSV: 6 mm. Reflux 6.5 seconds Calf GSV: 3 mm. No reflux Anterior accessory GSV (AAGSV): Anatomic variant not present across anterior thigh. Small saphenous vein (SSV): Posterior calf, draining into popliteal vein. Posterior calf: 3 mm. No reflux. Vein of Giacomini (posterior thigh connection between GSV and SSV): Anatomic variant not seen. Freelance Writer veins: Thigh: Location upper/mid, diameter 3 mm. No reflux IMPRESSION: 1. No left lower extremity DVT. 2. Left lower extremity reflux in the greater saphenous vein. Dictated by: John Guerra M.D. on 06/19/2025 at 22:31 Approved by: John Guerra M.D. on 06/19/2025 at 22:35
== END ==
LOC: US 14:38
PROVIDERS: Family Provider Registered Nurse; PCP Registered Nurse; Referring Provider Podiatrist; Visit Provider Podiatrist
DX: I83.892 Varicose veins of left lower extremity with other complications (principal); I87.2 Venous insufficiency (chronic) (peripheral)
CPT/HCPCS: 93971